=== PATIENT | male | born 1995 | race Caucasian/White ===

== ENCOUNTER → 2016-12-23 | Outpatient (CLI) | payer OTHER ==
[~2016-12-23] MED LIST: IBUP-103 PO; [UNRECOGNIZED DRUG - CODE] PO
--- NOTE | 2016-12-23 22:36 | DIAGNOSTIC IMAGING REPORT ---
PELVIS WITHOUT CONTRAST (MRI) CLINICAL HISTORY: LEFT GROIN PAIN COMPARISON STUDY: None. TECHNIQUE: Multiplanar multisequence MRI of the pelvis performed without contrast according to the athletic pubalgia protocol. FINDINGS: Mild edema at the medial pubic bones bilaterally consistent with osteitis pubis. There is also mild edema at the proximal attachment of the left adductor muscles best seen on axial image 17 of 32. This is consistent with a mild muscular strain. No acute fracture dislocation within the pelvis or hips. IMPRESSION: 1. Mild osteitis pubis. 2. Mild muscular strain of the left proximal adductor muscles. Electronically signed by: Shaka Ruiz M.D. 12/23/2016 10:35 PM Dictated Date/Time: 12/23/2016 10:26 PM
== END | disposition home or self-care (01) ==
LOC: C.MRI 20:55
PROVIDERS: ATTEND Internal Medicine
DX: R10.30 Lower abdominal pain, unspecified (principal)

== ENCOUNTER → 2017-02-18 | Outpatient (CLI) | payer OTHER | END | disposition home or self-care (01) | LOC: C.RDSM 12:45 | PROVIDERS: ATTEND Physical Medicine & Rehabilitation Sports Medicine | DX: S76.012A Strain of muscle, fascia and tendon of left hip, initial encounter (principal); X58.XXXA Exposure to other specified factors, initial encounter ==